=== PATIENT | male | born 1985 | race Caucasian/White ===

== ENCOUNTER → 2020-03-22 09:24 | Outpatient (BNVA) | payer BC, SELFPAY | PROVIDERS: Visit Provider Surgery | DX: Z76.89 Persons encountering health services in other specified circumstances (principal) ==

== ENCOUNTER → 2020-04-04 08:24 | Outpatient (BNVA) | payer BC, SELFPAY | PROVIDERS: PCP Internal Medicine; Visit Provider Physician Assistant | DX: Z76.89 Persons encountering health services in other specified circumstances (principal) ==

== ENCOUNTER → 2020-04-05 08:23 | Outpatient (BNVA) | payer BC, SELFPAY | PROVIDERS: PCP Internal Medicine; Visit Provider Physician Assistant | DX: Z76.89 Persons encountering health services in other specified circumstances (principal) ==

== ENCOUNTER → 2020-04-18 09:57 | Outpatient (BNVA) | payer BC, SELFPAY | PROVIDERS: PCP Internal Medicine; Visit Provider Surgery ==

== ENCOUNTER → 2020-05-02 08:14 | Outpatient (BNVA) | payer BC, SELFPAY | PROVIDERS: PCP Internal Medicine; Visit Provider Physician Assistant ==

== ENCOUNTER 2020-05-16 09:25 | Outpatient (REF) | payer BC, SELFPAY ==
[2020-05-16 12:39] LABS: Vitamin D 25-OH Total 19.5 ng/mL (>30)
== END 2020-05-16 09:26 | disposition home or self-care (01) ==
LOC: HO.LAB 09:25
PROVIDERS: PCP Internal Medicine; Visit Provider Surgery
DX: Z01.818 Encounter for other preprocedural examination (principal); E55.9 Vitamin D deficiency, unspecified; E66.01 Morbid (severe) obesity due to excess calories; G47.33 Obstructive sleep apnea (adult) (pediatric); Z99.89 Dependence on other enabling machines and devices; Z68.42 Body mass index [BMI] 45.0-49.9, adult
CPT/HCPCS: 36415; 82306

== ENCOUNTER → 2020-05-30 13:56 | Outpatient (BNVA) | payer BC, SELFPAY | PROVIDERS: PCP Internal Medicine; Visit Provider Surgery ==

== ENCOUNTER → 2020-06-13 14:23 | Outpatient (BNVA) | payer BC, SELFPAY | PROVIDERS: PCP Internal Medicine; Visit Provider Surgery ==

== ENCOUNTER 2020-06-23 07:15 | Outpatient (REF) | payer BC, SELFPAY ==
[2020-06-23 11:34] LABS: Glucose Urine UA NEG (NEG); Leukocyte Esterase Urine NEG (NEG); Nitrite Urine NEG (NEG); Specific Gravity - Urine >= 1.030 (1.005-1.025); Urine Blood TRACE (NEG); Urine Ketones NEG (NEG); Urine Protein NEG (NEG-TRACE)
[2020-06-23 11:36] LABS: Appearance Urine TURBID; Color Urine YELLOW
[2020-06-23 11:37] LABS: Hematocrit 40.8 % (42-52); Hemoglobin 13.4 g/dl (14.0-18.0); Mean Corpuscular HGB Conc 32.8 g/dl (31.0-36.0); Mean Corpuscular Hemoglobin 27.2 pg (27.0-33.0); Mean Corpuscular Volume 82.9 fL (80-98); Mean Platelet Volume 10.7 fL (9.4-12.4); Platelet Count 208 X10*3/uL (160-400); Red Blood Count 4.92 X10*6/uL (4.60-5.80); White Blood Count 5.1 X10*3/uL (4.8-10.8)
[2020-06-23 11:59] LABS: RBC Urine 0-2 /HPF (0); WBC Urine 0 /HPF (0-4)
[2020-06-23 12:00] LABS: Amorphous Sediment Urine 4+ /LPF
[2020-06-23 12:05] LABS: Alanine Aminotransferase 27 U/L (0-40); Albumin Level 4.2 g/dL (3.5-5.0); Alkaline Phosphatase 44 U/L (39-117); Anion Gap 12 (12-20); Aspartate Amino Transferase 20 U/L (5-37); Bilirubin Total 0.5 mg/dL (0.0-1.0); Blood Urea Nitrogen 18 mg/dL (9-16); Calcium 8.7 mg/dL (8.4-10.2); Carbon Dioxide 25 mmol/L (22-29); Chloride 105 mmol/L (96-108); Cholesterol 168 mg/dL; Estimated Glomerular Filt Rate > 60; Glucose Fasting 91 mg/dL (60-99); HDL Cholesterol 33 mg/dL; LDL Cholesterol Calculated 116 mg/dl; Potassium 4.3 mmol/L (3.3-5.1); Sodium 138 mmol/L (135-145); Total Protein 7.2 g/dL (6.5-8.0); Triglycerides 97 mg/dL
[2020-06-23 12:13] LABS: TSH reflex Free T4 1.13 uIU/mL (0.32-4.0); Vitamin D 25-OH Total 28.6 ng/mL (>30)
== END 2020-06-23 07:16 | disposition home or self-care (01) ==
LOC: HO.HMGCLDS 07:15
PROVIDERS: Surgery; PCP Internal Medicine; Visit Provider Internal Medicine
DX: Z00.00 Encounter for general adult medical examination without abnormal findings (principal); E55.9 Vitamin D deficiency, unspecified
CPT/HCPCS: 36415; 80053; 80061; 81001; 82306; 84443; 85027

== ENCOUNTER → 2020-07-04 15:29 | Outpatient (BNVA) | payer BC, SELFPAY | PROVIDERS: PCP Internal Medicine; Visit Provider Surgery ==

== ENCOUNTER → 2020-07-18 13:54 | Outpatient (BNVA) | payer BC, SELFPAY | PROVIDERS: PCP Internal Medicine; Visit Provider Surgery ==

== ENCOUNTER → 2020-08-08 10:08 | Outpatient (BNVA) | payer BC, SELFPAY | PROVIDERS: PCP Internal Medicine; Visit Provider Surgery ==

== ENCOUNTER → 2020-08-29 09:31 | Outpatient (BNVA) | payer BC, SELFPAY | PROVIDERS: PCP Internal Medicine; Visit Provider Surgery | DX: E66.9 Obesity, unspecified (principal) ==

== ENCOUNTER → 2020-09-20 14:51 | Outpatient (BNVA) | payer BC, SELFPAY | PROVIDERS: PCP Internal Medicine; Referring Provider Internal Medicine; Visit Provider Surgery ==

== ENCOUNTER → 2020-10-03 09:25 | Outpatient (BNVA) | payer BC, SELFPAY | PROVIDERS: PCP Internal Medicine; Referring Provider Internal Medicine; Visit Provider Physician Assistant ==

== ENCOUNTER → 2020-10-07 08:40 | Outpatient (BNVA) | payer BC, SELFPAY | PROVIDERS: PCP Internal Medicine; Visit Provider Physician Assistant ==

== ENCOUNTER → 2020-10-25 15:53 | Outpatient (BNVA) | payer BC, SELFPAY | PROVIDERS: PCP Internal Medicine; Referring Provider Internal Medicine; Visit Provider Surgery | DX: Z01.818 Encounter for other preprocedural examination (principal); R06.02 Shortness of breath ==

== ENCOUNTER 2020-11-02 10:36 | Inpatient (IN) | payer BC, SELFPAY ==
[2020-10-25 17:35] LABS: MANUAL DIFF FLAG NO
[2020-10-25 17:37] LABS: Basophils Percent Auto 0.3 % (0-2); Eosinophils Absolute Auto 0.2 X10*3/uL (0.0-0.4); Hematocrit 40.3 % (42-52); Hemoglobin 13.6 g/dl (14.0-18.0); Imm Gran Abs Auto 0.01 X10*3/uL (0.00-0.03); Imm Gran Pct Auto 0.1 % (0.0-0.4); Lymphocytes Absolute Auto 2.7 X10*3/uL (1.2-4.9); Lymphocytes Percent Auto 33.8 % (20-40); Mean Corpuscular HGB Conc 33.7 g/dl (31.0-36.0); Mean Corpuscular Hemoglobin 27.5 pg (27.0-33.0); Mean Corpuscular Volume 81.6 fL (80-98); Mean Platelet Volume 10.9 fL (9.4-12.4); Monocytes Absolute Auto 0.4 X10*3/uL (0.1-1.2); Monocytes Percent Auto 5.6 % (2-11); Neutrophils Absolute Auto 4.6 X10*3/uL (2.0-8.3); Neutrophils Percent Auto 58.2 % (45-73); Platelet Count 245 X10*3/uL (160-400); Red Blood Count 4.94 X10*6/uL (4.60-5.80); White Blood Count 7.8 X10*3/uL (4.8-10.8)
[2020-10-25 17:42] LABS: Glucose Urine UA NEG (NEG); Leukocyte Esterase Urine NEG (NEG); Nitrite Urine NEG (NEG); Specific Gravity - Urine >= 1.030 (1.005-1.025); UACC Culture Trigger NO; Urine Blood TRACE (NEG); Urine Ketones NEG (NEG); Urine Protein NEG (NEG-TRACE)
[2020-10-25 17:43] LABS: Appearance Urine HAZY; Color Urine YELLOW
[2020-10-25 17:45] LABS: INTERNATIONAL NORM RATIO 1.1 (0.9-1.1)
[2020-10-25 17:48] LABS: Partial Thromboplastin Time 28.8 SEC (24.1-38.0)
[2020-10-25 17:55] LABS: Albumin Level 4.4 g/dL (3.5-5.0); Anion Gap 13 (12-20); Blood Urea Nitrogen 17 mg/dL (9-16); Calcium 9.3 mg/dL (8.4-10.2); Carbon Dioxide 25 mmol/L (22-29); Chloride 105 mmol/L (96-108); Estimated Glomerular Filt Rate > 60; Glucose Random 86 mg/dL (60-115); Potassium 4.2 mmol/L (3.3-5.1); Sodium 139 mmol/L (135-145)
[2020-10-25 18:25] LABS: Bacteria Urine TRACE /LPF; RBC Urine 0-2 /HPF (0); WBC Urine 0 /HPF (0-4)
--- NOTE | 2020-10-26 07:10 | ECG_ITS ---
Test Reason : PREOP? Blood Pressure : / mmHG Vent. Rate : 070 BPM Atrial Rate : 070 BPM P-R Int : 176 ms QRS Dur : 090 ms QT Int : 392 ms P-R-T Axes : 081 041 050 degrees QTc Int : 423 ms Normal sinus rhythm Otherwise normal ECG Referred By: Kelsea Estrada Electronically Signed By:Bartolome Weinberg
[2020-10-27 10:13] VITALS: BMI 42.3
--- NOTE | 2020-10-31 13:28 | HO.ANESPROP2 ---
Documented by User: Theresa Zaldivar 10/31/20 13:28 HPI - Anesthesia Eval Consult details Narrative: 35yo M for Gastrectomy Sleeve,EGD,possible diaphragmatic hernia,possible ventral hernia,poss open PMFSH Active Problems Active Problems: All Active Problems (Updated 10/27/20 @ 10:13 by Belinda House) Body mass index (BMI) of 45.0-49.9 in adult (Acute) Vitamin D deficiency (Acute) Body mass index (BMI) of 40.1 to 44.9 in adult (Acute) Seasonal allergies (Acute) Adjustment disorder, unspecified (Acute) Preoperative examination (Acute) Shortness of breath (Acute) Morbid obesity due to excess calories (Acute) Annual physical exam (Acute) Past Medical History Medical History Annual physical exam Asthma Low testosterone in male Mixed hyperlipidemia Morbid obesity due to excess calories Obstructive sleep apnea on CPAP Family History Family History Father Heart disease Psoriasis Diabetes CVD (cardiovascular disease) Mother Diabetes Son No problems noted. Brother No problems noted. Brother No problems noted. Brother No problems noted. Brother No problems noted. Sister No problems noted. Sister No problems noted. Sister No problems noted. Sister No problems noted. Surgical History Surgical History No pertinent past surgical history Social History Social History Household Members: Family Housing: House Housing Other:: works as [employer] Are you a primary housekeeper child care to a significant other at home: No Do you presently have visiting nurse or other home services: No Patient Tobacco Use Status: Never used Tobacco Meds Allergies Allergy/AdvReac Type Severity Reaction Status Date / Time dog dander Allergy Mild Runny Verified 10/27/20 10:10 Nose, congestion Home Medications Medication Instructions Recorded Confirmed Last Taken Type multivitamin 1 tab PO DAILY 10/27/20 10/27/20 Unknown History Exam Exam Date and Time: October 31, 2020 1328 Height,Weight and Vital Signs: Height 6 ft 5 in Weight 161.932 kg Pertinent Lab Results Pertinent Lab Results: Laboratory Tests 0810/25/20 10/25/20 16:40 16:40 16:40 WBC 7.8 RBC 4.94 Hgb 13.6 L Hct 40.3 L MCV 81.6 MCH 27.5 MCHC 33.7 RDW 13.0 Plt Count 245 MPV 10.9 Immature Gran % (Auto) 0.1 Neut % (Auto) 58.2 Lymph % (Auto) 33.8 [place] % (Auto) 5.6 Eos % (Auto) 2.0 Baso % (Auto) 0.3 Lymph # (Auto) 2.7 [place] # (Auto) 0.4 Eos # (Auto) 0.2 Baso # (Auto) 0.0 Abs Immat Gran (auto) 0.01 Absolute Neuts (auto) 4.6 Absolute Nucleated RBC 0.000 Nucleated RBC % (auto) 0.0 PT 13.0 INR 1.1 APTT 28.8 Sodium Potassium Chloride Carbon Dioxide Anion Gap BUN Creatinine Estim Creat Clear Calc Estimated GFR Random Glucose Calcium Albumin Urine Color YELLOW Urine Appearance HAZY Urine pH 6.0 Ur Specific [place] >= 1.030 H Urine Protein NEG Urine Glucose (UA) NEG Urine Ketones NEG Urine Blood TRACE Urine Nitrite NEG Ur Leukocyte Esterase NEG Urine RBC 0-2 Urine WBC 0 Ur Squamous Epith Cells NONE Urine Bacteria TRACE Blood Type Antibody Screen 10/25/20 10/25/20 16:40 16:40 WBC RBC Hgb Hct MCV MCH MCHC RDW Plt Count MPV Immature Gran % (Auto) Neut % (Auto) Lymph % (Auto) [place] % (Auto) Eos % (Auto) Baso % (Auto) Lymph # (Auto) [place] # (Auto) Eos # (Auto) Baso # (Auto) Abs Immat Gran (auto) Absolute Neuts (auto) Absolute Nucleated RBC Nucleated RBC % (auto) PT INR APTT Sodium 139 Potassium 4.2 Chloride 105 Carbon Dioxide 25 Anion Gap 13 BUN 17 H Creatinine 0.82 Estim Creat Clear Calc TNP Estimated GFR > 60 Random Glucose 86 Calcium 9.3 D Albumin 4.4 Urine Color Urine Appearance Urine pH Ur Specific [place] Urine Protein Urine Glucose (UA) Urine Ketones Urine Blood Urine Nitrite Ur Leukocyte Esterase Urine RBC Urine WBC Ur Squamous Epith Cells Urine Bacteria Blood Type A Positive Antibody Screen NEGATIVE Narrative Narrative: EKG 10/2020 Vent. Rate : 070 BPM ? ? Atrial Rate : 070 BPM ?? P-R Int : 176 ms? QRS Dur : 090 ms ? ? QT Int : 392 ms ? ? ? P-R-T Axes : 081 041 050 degrees ?? QTc Int : 423 ms ? Normal sinus rhythm Otherwise normal ECG Assessment and Plan Assessment Anesthesia Assessment: Chart Reviewed Documented by User: Kenzie Begum MD 11/02/20 08:18 PMFSH Past Medical History Medical History Annual physical exam Asthma Low testosterone in male Mixed hyperlipidemia Morbid obesity due to excess calories Obstructive sleep apnea on CPAP Family History Family History Father Heart disease Psoriasis Diabetes CVD (cardiovascular disease) Mother Diabetes Son No problems noted. Brother No problems noted. Brother No problems noted. Brother No problems noted. Brother No problems noted. Sister No problems noted. Sister No problems noted. Sister No problems noted. Sister No problems noted. Family history of problems with anesthesia: No Surgical History Surgical History No pertinent past surgical history History of Problems with Anesthesia: No Social History Social History Household Members: Family Housing: House Housing Other:: works as [employer] Are you a primary housekeeper child care to a significant other at home: No Do you presently have visiting nurse or other home services: No Patient Tobacco Use Status: Never used Tobacco Meds Allergies Allergy/AdvReac Type Severity Reaction Status Date / Time dog dander Allergy Mild Runny Verified 10/27/20 10:10 Nose, congestion Home Medications Medication Instructions Recorded Confirmed Last Taken Type multivitamin 1 tab PO DAILY 10/27/20 10/27/20 Unknown History Exam Airway Mallampati Class: II TM Dist: >3cm Neck ROM: Full Assessment and Plan Assessment Anesthesia Assessment: Anesthesia Plan Discussed Final Anesthetic Review Family History of Problems with Anesthesia: No History of Problems with Anesthesia: No NPO: Yes ASA Class: III Final Preanesthetic Review: No Changes in Pt Med Stat, Meds/Allgs Chart Reviewed, Consent Obtained/Reviewed and Anes Risks/Benef Reviewed Patient Risk: Intermediate Procedure Risk: Intermediate Assessment/Block/Sedation in SS: Assess/Block/Sedation-SS Anesthetic Plan Anesthetic Plan: GA Disposition: Standard PACU
--- NOTE | 2020-11-01 16:02 | MHC.SHP ---
Pre-Procedural Eval Section A Date of Service: 11/01/20 Section B Chief Complaint: obesity Allergies: Allergies Allergy/AdvReac Type Severity Reaction Status Date / Time dog dander Allergy Mild Runny Verified 10/27/20 10:10 Nose, congestion Plan I have reviewed the history and physical and performed a pertinent physical examination on my patient. No changes have occurred unless specified.
[2020-11-02] VITALS (15 sets, daily range): BP systolic 120–170; BP diastolic 65–102; PULSE 58–80; RESP 16–20; TEMP 35.9–36.7; O2SAT 94–99
--- NOTE | ~2020-11-02 | XR_ITS ---
EXAMINATION: XR CHEST CLINICAL INFORMATION: R06.02 - Shortness of breath COMPARISON: Chest radiographs 11/23/2019, 11/04/2017 TECHNIQUE: 2 views of the chest were obtained. FINDINGS: The lungs are clear. The vascularity is normal. There is no airspace consolidation or groundglass opacity or effusion. The heart is normal in size. The hilar and mediastinal contours and visualized bony structures are unremarkable. XR/XR chest 2V IMPRESSION: Unremarkable examination.
[2020-11-02] MEDS: Lactated Ringers 1,000 ML 100 ML IVCONT (06:50)
[2020-11-02 07:07] LABS: COVID-19 Test Negative (Negative); IDNOW Serial# 9DD0AD1C
--- NOTE | 2020-11-02 10:19 | PM.OP ---
Brief Operative Note Date of Service: 11/02/20 Pre-op diagnosis: Morbid obesity, BMI 42.3, sleep apnea Post-op diagnosis: other (Same and hiatal hernia) Procedure: Laparoscopic sleeve gastrectomy, hiatal hernia repair, Ayaan block, and intraoperative endoscopy Implants: Medium size clips on the staple line distally Surgeon: Kelsea Estrada MD Anesthesia: GETA Was an Child Support Case Officer used for this Procedure?: Yes Child Support Case Officer: Mary Charlton Estimated blood loss (mL): 5 Pathology: other (Partial gastrectomy) Condition: stable Disposition: PACU
--- NOTE | 2020-11-02 10:20 | P.OP_ITS ---
Operative Note Operative Note Date of Service: 11/02/20 Narrative: Patient was brought into the operating room and placed on the operating room table in the supine position. General anesthesia was induced. Normal DVT prophylaxis was instituted and the patient received 2 grams of cefotetan preoperatively. The abdomen was then prepped and draped in the normal sterile fashion. A safety time-out was performed. A mixture of 1% lidocaine with epinephrine and ?% Marcaine plain was used to an esthetize the planned incision site in the left upper quadrant. A #11 scalpel was used to make a 5 mm left upper quadrant transverse incision through which a veress needle was placed. Three pops were heard going through the fascia. A saline drop test was used to confirm that the veress needle was intraabdominal. An optiview technique was then used to place a 5mm port in the left upper quadrant. A 5 mm 30 degree laproscope was then placed through this port and the abdominal cavity was surveyed and was normal. The patient was placed in reverse Trendelenburg positioning. A jonathan liver retractor was then placed in the subxyphoid position and it was used to hold up the left lobe of the liver to the abdominal wall. This was secured to the bed using the liver retractor chavez. A KIRSTEN block was then performed for pain control on the right side of the abdomen. A 5 mm port was placed in the right upper quadrant near the falciform ligament. A 12 mm port was then placed in the mid epigastrium. One additional 5 mm port was placed in the left upper quadrant just to the left of the placement of the first port. I then performed a KIRSTEN block on the left side of the abdomen. I then removed the epigastric fat pad; there was a small anterior hiatal hernia noted. I reapproximated the left and right crura with a total of 2 stitches of 2-0 ethibond and a laparoscopic knot pusher. There was no residual hiatal hernia. I then opened up the angle of His. We then gained entry into the lesser sac about 4-5 cm from the pylorus. I had anesthesia place a 34 German orogastric tube into the distal antrum to use as a sizing tool for gastric pouch size. I divided the short gastric vessels up to the angle of His. We then started the creation of the gastric pouch by firing a 60 mm purple load endostapler up the stomach about 4-5 cm from the pylorus. We completed the creation of the gastric pouch using a total of 4 firings of a 60 mm and 1 firing of a 45 mm purple load stapler. We had anesthesia remove the orogastric tube, then we clamped across the distal antrum using a fired 60 mm endostapler. We flattened the patient and then instilled normal saline surrounding the newly created staple line. I then performed an on-table endoscopy. I passed the gastroscopy into the posterior oropharynx and down the esophagus evaluating the esophageal mucosa which was normal. There was no evidence of hiatal hernia. I passed the gastroscope into the gastric pouch and insufflated the gastric pouch. There was healthy pink mucosa and no evidence of active bleeding. There was no evidence of leak on laparosco py. I desufflated the gastric pouch and removed the endoscope. I removed the endostapler from the abdomen and suctioned the fluid from the left upper quadrant. I then removed the partial gastrectomy specimen through the epigastric 12 mm port site. I reapproximated the 12 mm port using a 0 maxon suture with a laparoscopic suture passer. I instilled local anesthetic into the fascial closure site and tied the suture down at a pressure of 8-10 mm of Hg. There was no residual fascial defect. We removed the liver retractor and the left upper quadrant 5 mm ports under direct visualization. There was no evidence of any active bleeding. I desufflated the abdomen through the last remaining port and removed the laparoscope and 5 mm port. We reapproximated all incisions with a 4-0 monocryl subcuticular stitch. We cleaned and dried the abdominal skin and applied dermabond skin glue. All count were correct at the end of the case. The patient was awake and in stable condition prior to extubation and transfer to the recovery room.
[2020-11-02] MEDS: HYDROmorphone HCl 0.5 MG/0.5 ML SYRINGE IVPUSH ×2 (10:50→11:20)
[2020-11-02] MEDS: ondansetron HCL 4 MG/2 ML VIAL IVPUSH ×2 (10:52→17:51)
[2020-11-02] MEDS: Famotidine/PF 20 MG/2 ML VIAL IVPUSH ×2 (10:56→20:28)
[2020-11-02] MEDS: Lactated Ringers 1,000 ML 125 ML IVCONT ×2 (11:35→19:06)
[2020-11-02] MEDS: Metoclopramide HCl 10 MG/2 ML VIAL IVPUSH (14:52)
[2020-11-02] MEDS: HYDROmorphone HCl 0.5 MG/0.5 ML SYRINGE 0.25 MG IVPUSH ×2 (15:17→19:27)
[2020-11-02] MEDS: cefoTEtan disodium 2 GM in 0.9 % Sodium Chloride 50 ML IV (20:28)
[2020-11-02] MEDS: 0.9 % Sodium Chloride Flush 3 ML SYRINGE IVFLUSH (20:28)
--- NOTE | 2020-11-02 20:34 | P.DS_ITS ---
DS: Providers Provider Date of Service: 11/03/20 Date of admission: 11/02/20 10:36 Primary care physician: Gela Preston MD DS: Medications Discharge Medications Home Medications: Home Medications Medication Instructions Recorded Confirmed multivitamin 1 tab PO DAILY 10/27/20 10/27/20 Previous Rx's Medication Instructions Recorded phentermine 37.5 mg capsule 37.5 mg PO DAILY #30 cap 09/20/20 montelukast 10 mg tablet 10 mg PO DAILY #90 tab 09/23/20 acetaminophen 500 mg tablet 1,000 mg PO Q6H PRN #30 tab 10/25/20 (Tylenol Extra Strength) docusate sodium 100 mg capsule 100 mg PO BID #30 cap 10/25/20 (Colace) famotidine 20 mg tablet (Pepcid AC) 20 mg PO DAILY #30 tab 10/25/20 ondansetron HCl 4 mg tablet 4 mg PO Q6H PRN #30 tab 10/25/20 (Zofran) simethicone 80 mg chewable tablet 80 mg PO TID-QID PRN #30 tab 10/25/20 (Gas Relief (simethicone)) DS: Summary Time Spent with Patient Time attestation: Total time spent providing and/or coordinating discharge services: Discharge coordination time: Greater than 30 minutes Quality: Stroke Does the patient have a stroke diagnosis?: No Physical Exam Vital Signs: Vital Signs: Last Vital Signs Temp 98.1 F 11/02/20 18:56 Pulse 60 11/02/20 18:56 Resp 18 11/02/20 18:56 BP 135/65 11/02/20 18:56 Pulse Ox 97 11/02/20 18:56 Body Mass Index 42.3 DS: Data Data Completed and Pending Pending studies at discharge: Pending at discharge 11/02/20 09:55 Surgical [PTH] Routine Labs on day of discharge: Laboratory Results - last 24 hr 11/02/20 06:19 COVID-19 ([facility]) Negative COVID-19 Clin Com See Note Discharge Plan Discharge Patient Disposition: Home, Self-Care Discharge Diagnosis: obesity s/p LSG and HH repair Referrals: Gela Preston MD [Primary Care Provider] - 1 Week Discharge Medications: Continued montelukast 10 mg tablet 10 mg PO DAILY Qty: 90 RF: 3 multivitamin Tablet 1 tab PO DAILY RF: 0 acetaminophen [Tylenol Extra Strength] 500 mg tablet 1,000 mg PO Q6H PRN (Reason: pain) Qty: 30 RF: 1 famotidine [Pepcid AC] 20 mg tablet 20 mg PO DAILY Qty: 30 RF: 1 simethicone [Gas Relief (simethicone)] 80 mg tablet,chewable 80 mg PO TID-QID PRN (Reason: abdominal distention) Qty: 30 RF: 1 ondansetron HCl [Zofran] 4 mg tablet 4 mg PO Q6H PRN (Reason: nausea and vomiting) Qty: 30 RF: 1 docusate sodium [Colace] 100 mg capsule 100 mg PO BID Qty: 30 RF: 1 Discontinued phentermine 37.5 mg capsule 37.5 mg PO DAILY Qty: 30 RF: 0 Discharge Orders: Discharge Order (Routine); Ordered 11/03/20 Ordered By: Kelsea Estrada Diet: other Activity on Discharge: No heavy lifting Stand Alone Forms: Patient Portal Discharge page Activity Restrictions/Additional Instructions: Discharge Instructions 1. Please call your doctor or come back to the emergency room should any new symptoms arise. 2. You will receive a courtesy call from [facility] 24-48 hours after discharge. 3. Activity: abstain from alcohol, practice limited stair climbing, no bending, no driving, no exercise, no illicit substances, no lifting, no sex, no tub bath, no work. 4. Diet: continue stage 3 protein shakes until your [address] Estrada. 5. Dressing Change/Wound Care: Your incision is covered by surgical glue. If the area is tender, you may apply an ice pack for short intervals (no more than 20 minutes on, followed by at least 20 minutes off). Do not apply heat. Do not use creams, lotions, or topical antibiotics unless instructed to do so by your surgeon. These can cause infection or allergic reaction. 6. Call your doctor if: - Your temperature exceeds 101.5 F - You experience excessive pain or swelling - You have an unexpected reaction to medication - You have excessive bleeding - You experience continued vomiting/nausea - Your incision begins to separate - Your incision shows signs of infection such as increased redness, swelling, excessive pain, heat, or drainage (light blood or clear fluid is normal) 7. General instructions: - No lifting greater than 5 lbs for the next 4 weeks. - No driving within 24 hours of taking narcotic pain medications. - If you do not move your bowels in the next 2 days, please take milk of magnesia over the counter. Please follow the post op diet and do not advance your diet until you are seen in the office in about 2 weeks. - Please walk around your home every hour or two to prevent blood clots from forming in your legs. You do not need to wake from sleeping to walk. - Please sleep in a bed or couch to prevent kinking at the hips and knees. - Please take your incentive spirometer (your lung housekeeper cleaning cooking) home with you and use it for the next few days to prevent pneumonias. - You may shower, no hot tubs, baths or swimming pools. - Please call the office with any questions or concerns such as increasing abdominal pain, fever, chills, shortness of breath, chest pain, leg pain or swelling, or redness or drainage from your incisions. - Please stay on stage 3 diet which includes sugar free clear liquids such as ice pops and jello and broth and crystal light. Avoid all carbonation. Please drink 3 protein shakes with at least 25-30 grams of protein daily or 3 of the Celebrate 4:1 shakes which can be purchased in our office. The Celebrate shakes have all of the bariatric vitamins you need if you consume these shakes. If you are drinking other protein shakes, you will need to purchase the Celebrate multivitamins and calcium that we provide in the office (they will provide all the vitamins you need). Please make sure you are consuming at least 40-60 ounces of water in addition to your 3 protein shakes daily. 8. Do not hesitate to contact the office with any questions at . The patient's medical history has been reviewed and they are considered low risk for post op DVT and therefore DVT prophylaxis is not considered necessary. Travel after surgery was reviewed. The patient has not disclosed any travel plans during the first 30 days after surgery and they have been advised that within the first 30 days after surgery any bus, plane, train or car travel over 2 hours in duration is contraindicated due to the possibility of developing blood clots from immobility. Any travel, needs to include periods of ambulation of 10 minutes in duration every 2 hours. The patient was instructed to discuss any plans for travel during this period with their bariatric surgeon. Discharge Summary Date of Service: 11/03/20 Pre-op diagnosis: Morbid obesity, BMI 42.3, sleep apnea Post-op diagnosis: other (Same and hiatal hernia) Procedure: Laparoscopic sleeve gastrectomy, hiatal hernia repair, Ayaan block, and intraoperative endoscopy Discharge Medications: 1. Simethicone 80mg tablet chewable (Si tablet every 6 hours orally for 7 days, #28, 1 RF) q4h prn gas 2. Acetaminophen 500 mg tablet (Si tablets as needed every 6 hours orally for 30 days, #240, 0 RF) 3. Ondansetron 4 mg tablet disintegrating (Si tablet every 6 hours orally for 7 days, #28, 1 RF) 4. Colace 100 mg capsule (Si capsule twice a day for 30 days, #60, 2 RF) 5. Pepcid 20 mg chewable tablet (Si tablet twice a day for 30 days, #60, 3 RF) Discharge Instructions: The patient should continue on the stage III bariatric diet, which includes 3 protein shakes of at least 20-30g of protein on a daily basis. The patient was encouraged to avoid drinking liquids with her protein shakes. They should wait 30-45 minutes in between her meals and drinking water. She should drink at least 40-60 ounces of water on a daily basis. They should ambulate while at home to avoid any blood clots in her lower extremities. They should call with any questions or concerns such as increase in abdominal pain, persistent nausea, vomiting, redness and drainage from her incisions, fever, chills, shortness of breast, or chest pain beyond what is normal for her. The patient should avoid all heavy lifting greater than 5 pounds for the next 4 weeks. The patient is already scheduled to follow up with me in 2 weeks time, but should call the office with any questions prior to that follow up appointment. The patient should not advance their diet until they are seen in the office for the 2 week appointment. Hospital Course: The patient was admitted after undergoing a LSG and HH repair. They were started on stage II (1 oz of fluid every 15 minutes) on POD #0. The next morning they were evaluated and started on stage III diet (protein shakes). All labs were within normal limits. On post-operative day #1 she was feeling better, nausea and epigastric pain improved and they were tolerating stage III bariatric diet well. The patient was discharged home. Discharge Disposition: Home. Care Plan Goals: weight loss Health Concerns: obesity Plan of Treatment: weight loss Assessment: POD #1 Discharge Date/Time: 11/03/20 09:39
--- NOTE | 2020-11-02 20:34 | P.PNGS_ITS ---
Subjective Subjective Date of Service: 11/03/20 <Mary Charlton PA-C - Last Filed: 11/03/20 22:09> 11/03/20 <Kelsea Estrada MD - Last Filed: 11/03/20 12:26> Interval history: Pod #1 s/p LSG and HH repair. Doing well. Tolerating stage 3 diet, ambulating in hallway. Pain well controlled. Denies nausea or vomiting. Vitals and labs reviewed and are within limit for post op day 1. On exam, patient is well appearing, abdomen is soft, nd, mild appropriate incisional tenderness. Incisions c/d/i with dermabond in place. Plan: d/c home today. Follow up with me in 2 weeks. <Mary Charlton PA-C - Last Filed: 11/03/20 22:09> Pod #1 s/p LSG and HH repair. Doing well. Tolerating stage 3 diet, ambulating in hallway. Pain well controlled. Denies nausea or vomiting. Vitals and labs reviewed and are within limit for post op day 1. On exam, patient is well appearing, abdomen is soft, nd, mild appropriate incisional tenderness. Incisions c/d/i with dermabond in place. Plan: d/c home today. Follow up with me in 2 weeks. 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 I will follow up with the patient again in 2 weeks time frame. Patient will be discharged home today. <Kelsea Estrada MD - Last Filed: 11/03/20 12:26> Physical Exam Vital Signs: Vital Signs: Last Vital Signs Temp 98.1 F 11/02/20 18:56 Pulse 60 11/02/20 18:56 Resp 18 11/02/20 18:56 BP 135/65 11/02/20 18:56 Pulse Ox 97 11/02/20 18:56 Body Mass Index 42.3 <Mary Charlton PA-C - Last Filed: 11/03/20 22:09> Const: General: cooperative, comfortable, no acute distress, alert and awake <Mary Charlton PA-C - Last Filed: 11/03/20 22:09> Nutritional Appearance: obese <Mary Charlton PA-C - Last Filed: 11/03/20 22:09> GI: Inspection: Yes normal to inspection, No distended and Yes incision (clean, dry, intact, dermabond in place) <Mary Charlton PA-C - Last Filed: 11/03/20 22:09> Palpation (GI): Soft to palpation and Tenderness to palpation present (GI) (mild appropriate incisional tenderness) <Mary Charlton PA-C - Last Filed: 11/03/20 22:09> Extrem: Right lower extremity: lower leg Details: Negative for no tenderness; No no edema <Mary Charlton PA-C - Last Filed: 11/03/20 22:09> Left lower extremity: lower leg Details: Negative for no tenderness; No no edema <Mary Charlton PA-C - Last Filed: 11/03/20 22:09> Procedures Date of Service Date of Service: 11/03/20 <Kelsea Estrada MD - Last Filed: 11/03/20 12:26> Progress Note: A&P Assessment and plan (1) Morbid obesity: Status: Acute <Mary Charlton PA-C - Last Filed: 11/03/20 22:09> (2) Hiatal hernia: Status: Acute <Mary Charlton PA-C - Last Filed: 11/03/20 22:09> (3) History of repair of hiatal hernia: Status: Acute <LEIF Gray Last Filed: 11/03/20 22:09> (4) S/P laparoscopic sleeve gastrectomy: Status: Acute <Mary Charlton PA-C - Last Filed: 11/03/20 22:09> Fall Risk Details Current Medications: Current Medications Generic Name Dose Route Start Last Admin Trade Name Freq PRN Reason Stop Dose Admin Famotidine 20 mg 11/02/20 21:00 11/02/20 20:28 Famotidine/Pf 20 Mg/2 Ml Vial IVPUSH 20 mg BID YOLANDA Administration Hydromorphone HCl 0.25 mg 11/02/20 14:39 11/02/20 19:27 Hydromorphone Hcl 0.5 Mg/0.5 Ml Syringe IVPUSH 0.25 mg Q4H PRN Administration pain Protocol Lactated Ringer's 1,000 mls @ 125 mls/hr 11/02/20 10:45 11/02/20 19:06 Lr IVCONT 125 mls/hr .Q8H YOLANDA Administration Cefotetan Disodium 2 gm/ 50 mls @ 100 mls/hr 11/02/20 20:30 11/02/20 20:28 Sodium Chloride IV 11/02/20 20:59 100 mls/hr ONCE@2030 YOLANDA Administration Acetaminophen 1,000 mg in 100 mls @ 16.7 mls/hr 11/02/20 10:45 11/02/20 19:27 Ofirmev IV 16.7 mls/hr .Q6H YOLANDA Administration Metoclopramide HCl 10 mg 11/02/20 10:36 11/02/20 14:52 Metoclopramide Hcl 10 Mg/2 Ml Vial IVPUSH 10 mg Q6H PRN Administration Nausea Ondansetron HCl 4 mg 11/02/20 10:45 11/02/20 17:51 Ondansetron Hcl 4 Mg/2 Ml Vial IVPUSH 4 mg Q8H YOLANDA Administration Sodium Chloride 3 ml 11/02/20 16:00 11/02/20 20:28 0.9 % Sodium Chloride Flush 3 Ml Syringe IVFLUSH 3 ml QSHIFT YOLANDA Administration <Mary Charlton PA-C - Last Filed: 11/03/20 22:09> Time Spent With Patient Time: Total time spent is greater than 50% in coordination of care (as documented) at patient's floor/unit and/or counseling patient: <Mary Charlton PA-C - Last Filed: 11/03/20 22:09> Time with patient: 25 - 35 minutes <Mary Charlton PA-C - Last Filed: 11/03/20 22:09> Quality Stroke Does the patient have a stroke diagnosis?: No <Kelsea Estrada MD - Last Filed: 11/03/20 12:26> VTE Prior VTE?: No <Kelsea Estrada MD - Last Filed: 11/03/20 12:26> VTE Risk Level:: Surgical - moderate <Kelsea Estrada MD - Last Filed: 11/03/20 12:26> VTE Device Contraindication: N/A - Device Ordered <Klesea Estrada MD - Last Filed: 11/03/20 12:26> VTE Drug Contraindication: Treatment Not Indicated <Kelsea Estrada MD - Last Filed: 11/03/20 12:26>
[2020-11-03] MEDS: Lactated Ringers 1,000 ML 125 ML IVCONT (02:18)
[2020-11-03] MEDS: HYDROmorphone HCl 0.5 MG/0.5 ML SYRINGE 0.25 MG IVPUSH (02:18)
[2020-11-03] MEDS: ondansetron HCL 4 MG/2 ML VIAL IVPUSH (02:18)
[2020-11-03 03:48] VITALS: BP 165/83; PULSE 66; RESP 16; TEMP 36.6; O2SAT 97
[2020-11-03 07:08] LABS: MANUAL DIFF FLAG NO
[2020-11-03] MEDS: Famotidine/PF 20 MG/2 ML VIAL IVPUSH (07:10)
[2020-11-03 07:13] LABS: Basophils Percent Auto 0.2 % (0-2); Eosinophils Percent Auto 0.2 % (0-4); Hematocrit 39.6 % (42-52); Hemoglobin 13.6 g/dl (14.0-18.0); Imm Gran Abs Auto 0.04 X10*3/uL (0.00-0.03); Imm Gran Pct Auto 0.3 % (0.0-0.4); Lymphocytes Percent Auto 15.8 % (20-40); Mean Corpuscular HGB Conc 34.3 g/dl (31.0-36.0); Mean Corpuscular Hemoglobin 27.3 pg (27.0-33.0); Mean Corpuscular Volume 79.5 fL (80-98); Monocytes Absolute Auto 0.9 X10*3/uL (0.1-1.2); Monocytes Percent Auto 7.4 % (2-11); Neutrophils Absolute Auto 9.5 X10*3/uL (2.0-8.3); Neutrophils Percent Auto 76.1 % (45-73); Platelet Count 258 X10*3/uL (160-400); Red Blood Count 4.98 X10*6/uL (4.60-5.80); White Blood Count 12.5 X10*3/uL (4.8-10.8)
[2020-11-03 07:14] VITALS: BP 136/75; PULSE 68; RESP 16; TEMP 36.4; O2SAT 96
[2020-11-03 07:39] LABS: Anion Gap 14 (12-20); Blood Urea Nitrogen 7 mg/dL (9-16); Calcium 8.9 mg/dL (8.4-10.2); Carbon Dioxide 23 mmol/L (22-29); Chloride 102 mmol/L (96-108); Estimated Glomerular Filt Rate > 60; Glucose Random 100 mg/dL (60-115); Sodium 135 mmol/L (135-145)
--- NOTE | 2020-11-03 09:18 | MHC.CM.PN ---
EMR REVIEWED, PT ADMITTED S/P LSG AND HH REPAIR, CM MET W/PT AND PT'S WHO WAS AT BEDSIDE, PT REPORTS HE LIVES W/ AND SON, PT IS INDEPENDENT W/ALL CARE, HAS A CPAP AND NO OTHER DME, NO HOME SERVICES, WORKS [employer], PT VERIFIES PCP AND PT PROVIDED INFO ON A HCP AND IS CURRENTLY DECLINING. D/C PLAN: HOME SELF-CARE TODAY, FOR TRANSPORT PCP:ALMA ROSA VALDEZ
== END 2020-11-03 09:39 | disposition home or self-care (01) | DRG 403 ==
LOC: HO.SSSA 10:46 → HO.S3 11:42
PROVIDERS: Physician Assistant; Admitting Provider Surgery; PCP Internal Medicine; Visit Provider Surgery
PROC: 0DB64Z3 Excision of Stomach, Percutaneous Endoscopic Approach, Vertical (ICD-10-PCS; CPT 43845; principal; 2020-11-02 08:10)
DX: E66.01 Morbid (severe) obesity due to excess calories (principal); E78.2 Mixed hyperlipidemia; K44.9 Diaphragmatic hernia without obstruction or gangrene; G47.33 Obstructive sleep apnea (adult) (pediatric); Z68.41 Body mass index [BMI] 40.0-44.9, adult; Z20.822 Contact with and (suspected) exposure to COVID-19; Z99.89 Dependence on other enabling machines and devices; Z79.899 Other long term (current) drug therapy
CPT/HCPCS: 36415; 71046; 80048; 81001; 82040; 85025; 85610; 85730; 86850; 86900; 86901; 87635; 88307; 88342; 93005; 99024; C1776; J0131; J0690; J1170; J2405; J2550; J2765

== ENCOUNTER → 2020-11-21 08:24 | Outpatient (BNVA) | payer BC, SELFPAY | PROVIDERS: PCP Internal Medicine; Referring Provider Internal Medicine; Visit Provider Dietitian, Registered | DX: E66.9 Obesity, unspecified (principal); K59.00 Constipation, unspecified; R42 Dizziness and giddiness; E78.2 Mixed hyperlipidemia; E55.9 Vitamin D deficiency, unspecified; G47.33 Obstructive sleep apnea (adult) (pediatric); J30.81 Allergic rhinitis due to animal (cat) (dog) hair and dander; Z68.39 Body mass index [BMI] 39.0-39.9, adult; Z99.89 Dependence on other enabling machines and devices; Z98.84 Bariatric surgery status; Z71.3 Dietary counseling and surveillance | CPT/HCPCS: 97803 ==

== ENCOUNTER 2020-12-12 08:59 | Outpatient (REF) | payer BC, SELFPAY ==
[2020-12-12 10:41] LABS: Hematocrit 40.7 % (42-52); Hemoglobin 13.6 g/dl (14.0-18.0); Mean Corpuscular HGB Conc 33.4 g/dl (31.0-36.0); Mean Corpuscular Hemoglobin 27.4 pg (27.0-33.0); Mean Corpuscular Volume 81.9 fL (80-98); Mean Platelet Volume 10.7 fL (9.4-12.4); Platelet Count 210 X10*3/uL (160-400); Red Blood Count 4.97 X10*6/uL (4.60-5.80); Red Cell Distribution Width 13.9 % (11.0-16.0); White Blood Count 5.8 X10*3/uL (4.8-10.8)
[2020-12-12 11:16] LABS: Alanine Aminotransferase 30 U/L (0-40); Albumin Level 4.2 g/dL (3.5-5.0); Alkaline Phosphatase 55 U/L (39-117); Anion Gap 12 (12-20); Aspartate Amino Transferase 24 U/L (5-37); Bilirubin Total 0.5 mg/dL (0.0-1.0); Blood Urea Nitrogen 12 mg/dL (9-16); Calcium 9.6 mg/dL (8.4-10.2); Carbon Dioxide 27 mmol/L (22-29); Chloride 107 mmol/L (96-108); Cholesterol 143 mg/dL; Estimated Glomerular Filt Rate > 60; Glucose Random 94 mg/dL (60-115); HDL Cholesterol 32 mg/dL; Iron 59 mcg/dL (45-160); LDL Cholesterol Calculated 98 mg/dl; Percent Iron Saturation 22 % (15-50); Potassium 4.7 mmol/L (3.3-5.1); Sodium 141 mmol/L (135-145); Total Iron Binding Capacity 266 mcg/dL (228-428); Total Protein 6.7 g/dL (6.5-8.0); Triglycerides 68 mg/dL; Unsaturated Iron Binding 207 ug/dL
[2020-12-12 11:21] LABS: TSH reflex Free T4 0.99 uIU/mL (0.32-4.0); Vitamin D 25-OH Total 36.9 ng/mL (>30)
[2020-12-12 12:10] LABS: Folate 15.8 ng/mL (> or = 4.0); Vitamin B12 590 pg/mL (200-900)
[2020-12-16 12:36] LABS: Vitamin B6 45.7 ng/mL (2.1-21.7)
== END 2020-12-12 09:00 | disposition home or self-care (01) ==
LOC: HO.LAB 08:59
PROVIDERS: Absent Provider Internal Medicine; PCP Internal Medicine; Visit Provider Surgery
DX: Z00.00 Encounter for general adult medical examination without abnormal findings (principal); E66.01 Morbid (severe) obesity due to excess calories; Z68.37 Body mass index [BMI] 37.0-37.9, adult; E78.2 Mixed hyperlipidemia; Z98.84 Bariatric surgery status; Z98.890 Other specified postprocedural states; Z87.19 Personal history of other diseases of the digestive system
CPT/HCPCS: 36415; 80053; 80061; 82306; 82607; 82746; 83540; 84207; 84443; 85027

== ENCOUNTER → 2021-01-03 08:01 | Outpatient (BNVA) | payer BC, SELFPAY | PROVIDERS: PCP Internal Medicine; Visit Provider Dietitian, Registered | DX: E66.01 Morbid (severe) obesity due to excess calories (principal); Z68.36 Body mass index [BMI] 36.0-36.9, adult | CPT/HCPCS: 97803 ==

== ENCOUNTER → 2021-03-06 07:59 | Outpatient (BNVA) | payer BC, SELFPAY | PROVIDERS: PCP Internal Medicine; Visit Provider Physician Assistant Surgical ==

== ENCOUNTER → 2021-05-23 08:17 | Outpatient (BNVA) | payer BC, SELFPAY | PROVIDERS: PCP Internal Medicine; Visit Provider Physician Assistant Surgical ==

== ENCOUNTER → 2021-06-05 08:36 | Outpatient (BNVA) | payer BC, SELFPAY | PROVIDERS: PCP Internal Medicine; Visit Provider Dietitian, Registered | DX: E66.9 Obesity, unspecified (principal); Z68.31 Body mass index [BMI] 31.0-31.9, adult | CPT/HCPCS: 97803 ==

== ENCOUNTER 2021-06-23 10:09 | Outpatient (REF) | payer OTHER, BC, SELFPAY ==
[2021-06-23 11:40] LABS: MANUAL DIFF FLAG NO
[2021-06-23 11:45] LABS: Basophils Percent Auto 0.2 % (0-2); Eosinophils Absolute Auto 0.1 X10*3/uL (0.0-0.4); Hematocrit 40.2 % (42.0-52.0); Hemoglobin 13.3 g/dl (14.0-18.0); Imm Gran Abs Auto 0.01 X10*3/uL (0.00-0.03); Imm Gran Pct Auto 0.2 % (0.0-0.4); Lymphocytes Absolute Auto 1.8 X10*3/uL (1.2-4.9); Lymphocytes Percent Auto 31.5 % (20-40); Mean Corpuscular HGB Conc 33.1 g/dl (31.0-36.0); Mean Corpuscular Hemoglobin 27.4 pg (27.0-33.0); Mean Corpuscular Volume 82.7 fL (80.0-98.0); Mean Platelet Volume 10.6 fL (9.4-12.4); Monocytes Absolute Auto 0.3 X10*3/uL (0.1-1.2); Monocytes Percent Auto 4.5 % (2-11); Neutrophils Absolute Auto 3.4 x10*3/uL (2.0-8.3); Neutrophils Percent Auto 61.6 % (45-73); Platelet Count 222 X10*3/uL (160-400); Red Blood Count 4.86 X10*6/uL (4.60-5.80); Red Cell Distribution Width 13.2 % (11.0-16.0); White Blood Count 5.6 X10*3/uL (4.8-10.8)
[2021-06-23 12:01] LABS: Estimated Average Glucose 100 mg/dL; Hemoglobin A1c % 5.1 %
[2021-06-23 12:12] LABS: Anion Gap 12 (12-20); Blood Urea Nitrogen 13 mg/dL (9-16); Calcium 9.4 mg/dL (8.4-10.2); Carbon Dioxide 30 mmol/L (22-29); Chloride 103 mmol/L (96-108); Cholesterol 166 mg/dL; Estimated Glomerular Filt Rate > 60; Glucose Random 91 mg/dL (60-115); HDL Cholesterol 33 mg/dL; Iron 93 mcg/dL (45-160); LDL Cholesterol Calculated 116 mg/dl; Percent Iron Saturation 35 % (15-50); Potassium 4.6 mmol/L (3.3-5.1); Sodium 140 mmol/L (135-145); Total Iron Binding Capacity 268 mcg/dL (228-428); Triglycerides 89 mg/dL; Unsaturated Iron Binding 175 ug/dL
[2021-06-23 12:17] LABS: Ferritin 201 ng/mL (20-250); TSH reflex Free T4 0.92 uIU/mL (0.32-4.0); Vitamin D 25-OH Total 41.6 ng/mL (>30)
[2021-06-23 12:35] LABS: Folate 18.5 ng/mL (> or = 4.0); Vitamin B12 783 pg/mL (200-900)
[2021-06-26 23:55] LABS: Zinc 99 mcg/dL (60-130)
[2021-06-27 22:13] LABS: Vitamin A 38 mcg/dL (38-98)
[2021-06-29 16:36] LABS: Vitamin B1 13 nmol/L (8-30)
== END 2021-06-23 10:10 | disposition home or self-care (01) ==
LOC: HO.HMGCLDS 10:09
PROVIDERS: Visit Provider Physician Assistant Surgical
DX: E66.9 Obesity, unspecified (principal)
CPT/HCPCS: 36415; 80048; 80061; 82306; 82607; 82728; 82746; 83036; 83540; 84425; 84443; 84590; 84630; 85025

== ENCOUNTER → 2021-08-07 07:57 | Outpatient (BNVA) | payer OTHER, BC, SELFPAY | PROVIDERS: PCP Internal Medicine; Visit Provider Nurse Practitioner Family | DX: S06.0X9A Concussion with loss of consciousness of unspecified duration, initial encounter (principal); H91.92 Unspecified hearing loss, left ear; R06.83 Snoring; G47.19 Other hypersomnia; R42 Dizziness and giddiness | CPT/HCPCS: 99202 ==

== ENCOUNTER → 2021-12-01 08:10 | Outpatient (BNVA) | payer OTHER, BC, SELFPAY | PROVIDERS: PCP Internal Medicine; Visit Provider Nurse Practitioner Family | DX: F07.81 Postconcussional syndrome (principal); F43.20 Adjustment disorder, unspecified; H91.92 Unspecified hearing loss, left ear; H93.19 Tinnitus, unspecified ear | CPT/HCPCS: 99212 ==

== ENCOUNTER → 2022-02-01 10:44 | Outpatient (BNVA) | payer OTHER, BC, SELFPAY | PROVIDERS: PCP Internal Medicine; Visit Provider Nurse Practitioner Family | DX: F07.81 Postconcussional syndrome (principal); F43.20 Adjustment disorder, unspecified | CPT/HCPCS: 99212 ==

== ENCOUNTER → 2022-06-22 08:53 | Outpatient (BNVA) | payer OTHER, SELFPAY | PROVIDERS: PCP Internal Medicine; Visit Provider Nurse Practitioner Family | DX: F07.81 Postconcussional syndrome (principal); R42 Dizziness and giddiness | CPT/HCPCS: 99212 ==

== ENCOUNTER 2022-10-02 07:25 | Outpatient (AMB) | payer BC, SELFPAY ==
[2022-10-02 07:33] VITALS: BP 124/78; PULSE 64; O2SAT 96; BMI 34.4
--- NOTE | 2022-10-02 07:33 | MHC.OFFVIS ---
Intake Vital Signs 10/02/22 07:33 Height 6 ft 5 in Weight 290 lb 4 oz BMI 34.4 BP 124/78 Blood Pressure Location Rt brachial Position Sitting Pulse 64 Pulse Source Pulse Oximeter Pulse Oximetry (%) 96 Oxygen Delivery Method Room Air Intake Visit Reasons: F/u appt - Confirmed Intake Note: Pt presents as a f/u. Pt states he is doing better and no concerns. 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 Pt denies any significant interval medical changes. Pt reports that he is doing overall better. He has slowlyweaned himself off of the Amitriptyline, and trying to wean off the B2 and Mag. The spinning dizziness episodes have decreased- has a warning andthen they last about 10 seconds. In the evening, may be whoozy. He started exersing at [employer]- and this has not triggered dizziness. Headaches are slowly decreasing. Some days may wake up with a more bothersome headache. May use Tylenol or Rizatriptan as needed. 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 Sometimes may need to take a break from continued computer use, but this does not cause any issues. He notes today that he has a h/o CARLTON- he stopped using his PAP machine a while ago as it was a [employer] machine and was part of the recall. When he was diagnosed with sleep apnea it was prior to his weight loss surgery. Prior to the surgery- he had severe snoring, excessive daytime sleepiness. Now he feels that he is snoring less, continues to have some excessive daytime sleepiness- ESS 10- he is curious about the status of his sleep apnea- whether he should resume using CPAP or not. [facility] Medical History (Updated 10/02/22 @ 12:54 by TOMEKA Hair) Adjustment disorder, unspecified Annual physical exam Asthma Back pain of lumbar region with sciatica Body mass index (BMI) of 40.1 to 44.9 in adult Body mass index (BMI) of 45.0-49.9 in adult Concussion Fall Hiatal hernia Low testosterone in male Mixed hyperlipidemia Morbid obesity (~06/23/21) Morbid obesity due to excess calories Obstructive sleep apnea on CPAP Preoperative examination Rash Seasonal allergies Shortness of breath Vitamin D deficiency Surgical History (Updated 10/02/22 @ 07:40 by Savannah Richards CMA) History of repair of hiatal hernia Hx of vasectomy No pertinent past surgical history S/P laparoscopic sleeve gastrectomy Family History Father Heart disease Psoriasis Diabetes CVD (cardiovascular disease) Mother Diabetes Son No problems noted. Brother No problems noted. Brother No problems noted. Brother No problems noted. Brother No problems noted. Sister No problems noted. Sister No problems noted. Sister No problems noted. Sister No problems noted. Social History (Updated 10/02/22 @ 07:41 by Savannah Richards CMA) Household Members: Family Housing: House Housing Other:: works as [employer] Are you a primary child care center assistant director to a significant other at home: No Do you presently have visiting nurse or other home services: No Alcohol intake: never Patient Tobacco Use Status: Never used Tobacco e-Cigarette/Vaping Use: Never Used Current occupational status: employed Review of Systems Const All systems reviewed & are unremarkable except as noted in HPI and below Physical Exam Vital Signs: Last Vital Signs Pulse 64 10/02/22 07:33 BP 124/78 10/02/22 07:33 Pulse Ox 96 10/02/22 07:33 Oxygen Delivery Method Room Air 10/02/22 07:33 BMI result Body Mass Index 34.4 Const General: cooperative and no acute distress Orientation/consciousness: patient oriented x3 HEENT Head: Yes normocephalic Resp Effort & Inspection: normal respiratory effort and able to speak in complete sentences Neuro General: patient oriented x3, gait normal and CN's II-XI intact bilaterally Cognition (Neuro): normal cognition Motor exam (neuro): 5/5 motor strength present throughout Psych Appearance: grossly normal Mental Status: mental status grossly normal Speech and movement: Normal speech and movement present Affect: normal affect Attitude: cooperative Thought process: Normal thought process present Thought content: Normal thought content present Insight: Good insight present (Psych) Judgement: Good judgement present (Psych) Assessment & Plan Assessment & Plan (1) Postconcussion syndrome: Comment: 05/12/21 w/ migraine-like TEJADA, vertigo, tinnitus, cognitive difficulties, mood irritability, sleep difficulties. Code(s): F07.81 - Postconcussional syndrome (2) Excessive daytime sleepiness: Comment: ESS 15 Code(s): G47.19 - Other hypersomnia (3) Snoring: Code(s): R06.83 - Snoring (4) Obstructive sleep apnea: Comment: not currently on PAP tx- machine was aprt of [employer] recal. Code(s): G47.33 - Obstructive sleep apnea (adult) (pediatric) Plan Pt continues to make gains, but does continue to have ongoing mild post-concussive symptoms. For prevention of postconcussive migraine headache: May hold Riboflavin 200mg bid. May hold Magnesium Oxide 400mg qhs. Stopped?Amitriptyline 100mg qhs. Hold Topiramate 50mg bid- headaches improved. Continue exercise. For acute headache tx: Rizatriptan prn at onset of headache. May use Tylenol 1000mg or Ibuprofen 800mg prn Previous acute migraine trials: Sumatriptan: caused irritability. Future considerations- ODT/nasal/injectable tx options as pt has h/o gastric sleeve surgery.For general postconcussive syndrome. For dizziness: Meclizine up to 25mg tid prn At onset of dizziness, take rest break. He may drive- may need to take breaks. Future considerations- following up on request by ENT for [facility] consult For mood: Mood currently improved Monitor mood For sleep: Pt advised to undergo HST to assess status of his h/o severe sleep apnea, as pt has had > 10% weight loss since previous in-lab PSG. HST results will help us to determine if pt continues to need to use PAP tx or not. 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 f/u in 6 months or sooner prn. Medications: Changed From ibuprofen 800 mg PO TID 90 tabs 0RF To ibuprofen 800 mg PO TID PRN Coding Level of Care Code Est Pt Level 4 (26528) Diagnoses Postconcussion syndrome F07.81 Excessive daytime sleepiness G47.19 Snoring R06.83 Obstructive sleep apnea G47.33
== END 2022-10-02 08:22 | disposition home or self-care (01) ==
LOC: HO.HSMS 07:25
PROVIDERS: PCP Internal Medicine; Visit Provider Nurse Practitioner Family
DX: F07.81 Postconcussional syndrome (principal); G47.19 Other hypersomnia; R06.83 Snoring; G47.33 Obstructive sleep apnea (adult) (pediatric)
CPT/HCPCS: 99214

== ENCOUNTER → 2022-10-02 07:25 | Outpatient (BNVA) | payer BC, SELFPAY | PROVIDERS: PCP Internal Medicine; Visit Provider Nurse Practitioner Family ==

== ENCOUNTER 2023-04-04 07:52 | Outpatient (AMB) | payer BC, SELFPAY ==
[2023-04-04 08:05] VITALS: BP 134/78; PULSE 51; O2SAT 99; BMI 34.0
--- NOTE | 2023-04-04 08:05 | A.OFFVIS_ITS ---
Intake Vital Signs 04/04/23 08:05 Height 6 ft 5 in Weight 287 lb BMI 34.0 BP 134/78 Blood Pressure Location Rt brachial Position Sitting Pulse 51 Pulse Source Pulse Oximeter Pulse Oximetry (%) 99 Oxygen Delivery Method Room Air Intake Visit Reasons: 6m follow up-Confirmed Intake Note: Patient presents for 6 month follow up. no issues or concerns Allergies dog dander Allergy (Mild, Verified 04/04/23 08:07) Runny Nose, congestion HPI HPI Comments History of Present Illness Details 38-yr-old male presents for f/u visit. Pt denies any significant interval medical changes. Pt has stopped most of his meds, except for the B2, as work comp stopped covering his medications. He has had just one episode of intense vertigo in the past 6 months. His headache attacks are less often, now 1-2 per month, wants to go into a dark room. Using Tylenol and Ibuprofen, Broderick does work better- has a few left. He continues to have left ear hearing loss. His vision is better. He is now sleeping better- usually 6-8 hrs per night. He is still going to gym- 2-3 mornings per week- at [employer]- noticing more gains. 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 [facility] Medical History (Updated 10/02/22 @ 12:54 by TOMEKA Hair) Rash Back pain of lumbar region with sciatica Concussion Fall Hiatal hernia Morbid obesity (~06/23/21) Shortness of breath Preoperative examination Adjustment disorder, unspecified Seasonal allergies Annual physical exam Mixed hyperlipidemia Asthma Body mass index (BMI) of 40.1 to 44.9 in adult Vitamin D deficiency Body mass index (BMI) of 45.0-49.9 in adult Obstructive sleep apnea on CPAP Low testosterone in male Morbid obesity due to excess calories Surgical History Hx of vasectomy S/P laparoscopic sleeve gastrectomy History of repair of hiatal hernia No pertinent past surgical history Family History Father Heart disease Psoriasis Diabetes CVD (cardiovascular disease) Mother Diabetes Son No problems noted. Brother No problems noted. Brother No problems noted. Brother No problems noted. Brother No problems noted. Sister No problems noted. Sister No problems noted. Sister No problems noted. Sister No problems noted. Social History (Updated 10/02/22 @ 07:41 by Savannah Richards [facility]) Household Members: Family Housing: House Housing Other:: works as [employer] Are you a primary care navigator to a significant other at home: No Do you presently have visiting nurse or other home services: No Alcohol intake: never Comment: aware of trip hazard Patient Tobacco Use Status: Never used Tobacco e-Cigarette/Vaping Use: Never Used Current occupational status: employed Physical Exam Vital Signs: Last Vital Signs Pulse 51 04/04/23 08:05 BP 134/78 04/04/23 08:05 Pulse Ox 99 04/04/23 08:05 Oxygen Delivery Method Room Air 04/04/23 08:05 BMI result Body Mass Index 34.0 Const General: cooperative and no acute distress Orientation/consciousness: patient oriented x3 Resp Effort & Inspection: normal respiratory effort and able to speak in complete sentences Neuro Other: left hearing loss General: patient oriented x3 Cognition (Neuro): normal cognition Psych Appearance: grossly normal Mental Status: mental status grossly normal Speech and movement: Normal speech and movement present Affect: normal affect Attitude: cooperative Assessment & Plan Assessment & Plan (1) Postconcussion syndrome: Comment: 05/12/21 w/ migraine-like TEJADA, vertigo, tinnitus, cognitive difficulties, mood irritability, sleep difficulties. Code(s): F07.81 - Postconcussional syndrome (2) Obstructive sleep apnea: Comment: not currently on PAP tx- machine was aprt of [employer] recal. Code(s): G47.33 - Obstructive sleep apnea (adult) (pediatric) (3) Left ear hearing loss: Code(s): H91.92 - Unspecified hearing loss, left ear Plan Pt continues to make gains, but does continue to have ongoing mild post-c oncussive symptoms. ? For prevention of postconcussive migraine headache: Continue Riboflavin 200mg bid. Alternately, may trial OTC Migralief (B2, Mag, feverfew supplement). Continue exercise. For acute headache tx: Rizatriptan prn at onset of headache. May use Tylenol 1000mg or Ibuprofen 800mg prn Previous acute migraine trials: Sumatriptan: caused irritability. Future considerations- ODT/nasal/injectable tx options as pt has h/o gastric sleeve surgery.For general postconcussive syndrome. For dizziness: Improved At onset of dizziness, take rest break. Hold Meclizine up to 25mg tid prn order. Future considerations- following up on request by ENT for [facility] consult For mood: Mood currently improved Monitor mood For sleep: No current s/s of EDS, if pt has increased s/s CARLTON, will reconsder doing a f/u HST. Previous resp home care supplier- [facility] ? 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 ? f/u in 6 months or sooner prn. Coding Level of Care Code Est Pt Level 4 (05922) Diagnoses Postconcussion syndrome F07.81 Obstructive sleep apnea G47.33 Left ear hearing loss H91.92
== END 2023-04-04 09:01 | disposition home or self-care (01) ==
PROVIDERS: PCP Internal Medicine; Visit Provider Nurse Practitioner Family
DX: G44.309 Post-traumatic headache, unspecified, not intractable (principal); F07.81 Postconcussional syndrome; G47.33 Obstructive sleep apnea (adult) (pediatric); H91.92 Unspecified hearing loss, left ear
CPT/HCPCS: 99214

== ENCOUNTER → 2023-04-04 07:52 | Outpatient (BNVA) | payer BC, SELFPAY | PROVIDERS: PCP Internal Medicine; Visit Provider Nurse Practitioner Family ==

== ENCOUNTER 2023-06-20 08:05 | Outpatient (AMB) | payer BC, SELFPAY ==
--- NOTE | 2023-06-20 08:11 | A.OFFPC_ITS ---
Vital Signs 06/20/23 08:20 Height 6 ft 5 in Weight 279 lb BMI 33.1 BP 102/60 Blood Pressure Location Lt brachial Position Sitting Pulse 54 Pulse Source Pulse Oximeter Pulse Oximetry (%) 98 Oxygen Delivery Method Room Air Intake Visit Reasons: PE Intake Note: Pt is here today for PE. Allergies dog dander Allergy (Mild, Verified 06/20/23 08:21) Runny Nose, congestion Tobacco use date assessed: 06/20/23 Dental Screening Dental Screen Date: 06/20/23 Did you have a dental visit in the last 12 months?: Yes Did you have a dental problem in the last 6 months where you did not have access to dental care?: No Was dental information given to patient?: Patient has dentist HPI PE HPI Details Pt presents for PE. Patient reports seasonal allergies spring and fall and used to get allergy shots but only for 6 months. 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 Patient has not been using a CPAP because recall of his CPAP machine. He can not getting new one unless he does another sleep study. [facility] Medical History (Updated 06/20/23 @ 08:49 by Gela Preston MD) Rash Back pain of lumbar region with sciatica Concussion Fall Hiatal hernia Morbid obesity (~06/23/21) Shortness of breath Preoperative examination Adjustment disorder, unspecified Seasonal allergies Annual physical exam Mixed hyperlipidemia Asthma Body mass index (BMI) of 40.1 to 44.9 in adult Vitamin D deficiency Body mass index (BMI) of 45.0-49.9 in adult Obstructive sleep apnea on CPAP Low testosterone in male Surgical History Hx of vasectomy S/P laparoscopic sleeve gastrectomy History of repair of hiatal hernia No pertinent past surgical history Family History Father Heart disease Psoriasis Diabetes CVD (cardiovascular disease) Mother Diabetes Son No problems noted. Brother No problems noted. Brother No problems noted. Brother No problems noted. Brother No problems noted. Sister No problems noted. Sister No problems noted. Sister No problems noted. Sister No problems noted. Social History Household Members: Family Housing: House Housing Other:: works as [employer]. Are you a primary healthcare applications analyst to a significant other at home: No Do you presently have visiting nurse or other home services: No Alcohol intake: never Comment: aware of trip hazard Patient Tobacco Use Status: Never used Tobacco e-Cigarette/Vaping Use: Never Used Current occupational status: employed Cognitive needs: No Hearing needs: No Vision needs: No Questionnaire PHQ-9 Over the last 2 weeks, how often have you been bothered by any of the following problems? 1. Little interest or pleasure in doing things: several days 2. Feeling down, depressed, or hopeless: several days 3. Trouble falling or staying asleep, or sleeping too much: not at all 4. Feeling tired or having little energy: several days 5. Poor appetite or overeating: not at all 6. Feeling bad about yourself - or that you are a failure or have let yourself or your family down: not at all 7. Trouble concentrating on things, such as reading the newspaper or watching television: not at all 8. Moving or speaking so slowly that other people could have noticed. Or the o pposite - being so fidgety or restless that you have been moving around a lot more than usual: not at all 9. Thoughts that you would be better off or of hurting yourself in some way: not at all Total score: 3 Depression Screening Interpretation: Negative Depression Screening Done: Yes Source: Developed by Drs. Reyes Handley, Komal Negrete, Derek Ferrer and colleagues, with an educational andrew from [employer]. Thrive Questionnaire Date Thrive assessed: 06/20/23 I am a: Patient What is your living situation today?: I have a steady place to live Within the past 12 months, did the food you bought not last and you didn't have the money to get more?: Never true Within the past 12 months, did you worry whether your food would run out before you got money to buy more?: Sometimes True Do you have trouble paying for medicines?: No Do you have trouble getting transportation to medical appointments?: No Do you have trouble paying your heating and electricity bill?: No Do you have trouble taking care of your child, family member or friend?: No Do you have trouble with day-to-day activities such as bathing, preparing meals, shopping, managing finances, etc.?: I choose not to answer this question Are you currently unemployed and looking for a job?: No Are you interested in more education?: No Please select the resources that you would like help with: None THRIVE Score: 1 AUDIT C Alcohol Use Questionnaire (AUDIT-C) 1. How often do you have a drink containing alcohol?: Never 2. How many drinks containing alcohol do you have on a typical day when you are drinking?: 1 or 2 3. How often do you have six or more drinks on one occasion?: Never Total Score: 0 HAYLEE-7 AMB Questionnaire HAYLEE-7 Date HAYLEE - 7 assessed: 06/20/23 Feeling nervous, anxious, or on edge: 2 = More than half the days Not being able to stop or control worryin = Several days Worrying too much about different things: 1 = Several days Trouble relaxin = Several days Being so restless that it is hard to sit still: 0 = Not at all Becoming easily annoyed or irritable: 1 = Several days Feeling afraid as if something awful might happen: 1 = Several days Total HAYLEE-7 score (0-4 normal; 5-9 mild; 10-14 moderate; 15-21 severe): 7 Source: Developed by Drs. Reyes Handley, Komal Negrete, Derek Ferrer and colleagues, with an educational andrew from [employer]. Review of Systems Const All systems reviewed & are unremarkable except as noted in HPI and below Reports no additional complaints Eyes Reports no additional complaints ENT Reports no additional complaints Card Reports no additional complaints Resp Reports no additional complaints GI Reports no additional complaints Reports no additional complaints Physical exam (Primary Care) Vital Signs: Last Vital Signs Pulse 54 06/20/23 08:20 BP 102/60 06/20/23 08:20 Pulse Ox 98 06/20/23 08:20 Oxygen Delivery Method Room Air 06/20/23 08:20 BMI result Body Mass Index 33.1 Tobacco/Smoking Status: Tobacco use Status Tobacco use date assessed 06/20/23 06/20/23 08:25 Patient Tobacco Use Status Never used Tobacco 06/20/23 08:25 e-Cigarette/Vaping Use Never Used 06/20/23 08:13 PHQ-9: PHQ-9 Score PHQ-9: Total score 3 06/20/23 08:38 Depression Screening Interpretation: Negative Thrive Assessment: Date of Thrive Assessment Date Thrive assessed 06/20/23 06/20/23 08:13 Const General: no acute distress HENMT Head: Yes normal to inspection Ears: hearing grossly normal bilaterally General nose exam: Normal external nose present Face and sinus: Yes normal facial exam Mouth: Normal oral and palatal mucosa present Throat: Yes posterior oropharynx normal Eyes General: appearance normal, both eyes and all related structures Neck Neck: Yes no lymphadenopathy and Yes supple Resp Effort & Inspection: normal respiratory effort Auscultation: clear to auscultation bilaterally Cardio Rhythm: regular rhythm Heart sounds: S1 normal heart sound present and S2 normal heart sound present GI Inspection: Yes normal to inspection Palpation (GI): Soft to palpation Percussion: Yes normal to percussion Auscultation: normal bowel sounds Assessment and Plan Assessment & Plan (1) Seasonal allergies: Code(s): J30.2 - Other seasonal allergic rhinitis Plan: Refer to allergy (2) S/P laparoscopic sleeve gastrectomy: Comment: 10/2020 Code(s): Z98.84 - Bariatric surgery status Plan: Follow-up with bariatric surgery team at [facility] (3) Annual physical exam: Code(s): Z00.00 - Encounter for general adult medical examination without abnormal findings Plan: Well-balanced diet regular physical activity discussed with the patient he will return for fasting blood work (4) Obstructive sleep apnea: Comment: not currently on PAP tx- machine was aprt of [facility] recall, ordered sleep study 06/15, f/u with Sleep Medicine Code(s): G47.33 - Obstructive sleep apnea (adult) (pediatric) Plan: Schedule a sleep study with titration and follow-up with Sleep Medicine Orders: Orders RT PSG in-lab sleep titration Today Comprehensive [place]. Panel Fast Today G47.33 - Obstructive sleep apnea (adult) (pediatric), Z00.00 - Encounter for general adult medical examination without abnormal findings, Z98.84 - Bariatric surgery status Lipid Panel Today G47.33 - Obstructive sleep apnea (adult) (pediatric), Z00.00 - Encounter for general adult medical examination without abnormal findings, Z98.84 - Bariatric surgery status UA w Microscopic Today G47.33 - Obstructive sleep apnea (adult) (pediatric), Z00.00 - Encounter for general adult medical examination without abnormal findings, Z98.84 - Bariatric surgery status Vitamin B12 and Folate Today G47.33 - Obstructive sleep apnea (adult) (pediatric), Z00.00 - Encounter for general adult medical examination without abnormal findings, Z98.84 - Bariatric surgery status Complete Blood Count Auto Diff Today G47.33 - Obstructive sleep apnea (adult) (pediatric), Z00.00 - Encounter for general adult medical examination without abnormal findings, Z98.84 - Bariatric surgery status IRON PROFILE Today G47.33 - Obstructive sleep apnea (adult) (pediatric), Z00.00 - Encounter for general adult medical examination without abnormal findings, Z 98.84 - Bariatric surgery status Vitamin B2 (Riboflavin) Today Referrals Bariatric Surgery Referral G47.33 - Obstructive sleep apnea (adult) (pediatric), Z00.00 - Encounter for general adult medical examination without abnormal findings, Z98.84 - Bariatric surgery status Allergy & Immunology Referral J30.2 - Other seasonal allergic rhinitis Coding Level of Care Code Est Pt Prev Care 18-39y(23606) Diagnoses Seasonal allergies J30.2 S/P laparoscopic sleeve gastrectomy Z98.84 Annual physical exam Z00.00 Obstructive sleep apnea G47.33
[2023-06-20 08:20] VITALS: BP 102/60; PULSE 54; O2SAT 98; BMI 33.1
== END 2023-06-20 09:15 | disposition home or self-care (01) ==
PROVIDERS: PCP Internal Medicine; Visit Provider Internal Medicine
DX: J30.2 Other seasonal allergic rhinitis (principal); Z98.84 Bariatric surgery status; Z00.00 Encounter for general adult medical examination without abnormal findings; G47.33 Obstructive sleep apnea (adult) (pediatric)
CPT/HCPCS: 99395

== ENCOUNTER 2023-06-25 08:14 | Outpatient (REF) | payer BC, SELFPAY ==
[2023-06-25 08:39] LABS: MANUAL DIFF FLAG NO
[2023-06-25 09:14] LABS: Basophils Percent Auto 0.3 % (0-2); Eosinophils Absolute Auto 0.2 X10*3/uL (0.0-0.4); Eosinophils Percent Auto 2.5 % (0-4); Hematocrit 41.2 % (42.0-52.0); Hemoglobin 13.5 g/dl (14.0-18.0); Imm Gran Abs Auto 0.02 X10*3/uL (0.00-0.03); Imm Gran Pct Auto 0.3 % (0.0-0.4); Lymphocytes Absolute Auto 1.6 X10*3/uL (1.2-4.9); Lymphocytes Percent Auto 23.4 % (20-40); Mean Corpuscular HGB Conc 32.8 g/dl (31.0-36.0); Mean Corpuscular Hemoglobin 27.6 pg (27.0-33.0); Mean Corpuscular Volume 84.3 fL (80.0-98.0); Mean Platelet Volume 10.8 fL (9.4-12.4); Monocytes Absolute Auto 0.3 X10*3/uL (0.1-1.2); Monocytes Percent Auto 4.8 % (2-11); Neutrophils Absolute Auto 4.8 x10*3/uL (2.0-8.3); Neutrophils Percent Auto 68.7 % (45-73); Platelet Count 207 X10*3/uL (160-400); Red Blood Count 4.89 X10*6/uL (4.60-5.80); Red Cell Distribution Width 12.9 % (11.0-16.0); White Blood Count 6.9 X10*3/uL (4.8-10.8)
[2023-06-25 09:42] LABS: Alanine Aminotransferase 18 U/L (0-40); Albumin Level 4.1 g/dL (3.5-5.0); Alkaline Phosphatase 49 U/L (39-117); Anion Gap 11 (12-20); Aspartate Amino Transferase 19 U/L (5-37); Bilirubin Total 0.7 mg/dL (0.0-1.0); Blood Urea Nitrogen 16 mg/dL (9-16); Calcium 9.2 mg/dL (8.4-10.2); Carbon Dioxide 28 mmol/L (22-29); Chloride 107 mmol/L (96-108); Cholesterol 176 mg/dL (<200); Estimated Glomerular Filt Rate > 60; Glucose Fasting 85 mg/dL (60-99); HDL Cholesterol 42 mg/dL (>40); Iron 118 mcg/dL (45-160); LDL Cholesterol Calculated 122 mg/dL (<100); Percent Iron Saturation 47 % (15-50); Potassium 3.7 mmol/L (3.3-5.1); Sodium 142 mmol/L (135-145); Total Iron Binding Capacity 251 mcg/dL (228-428); Total Protein 7.3 g/dL (6.5-8.0); Triglycerides 60 mg/dL (<150); Unsaturated Iron Binding 133 ug/dL
[2023-06-25 10:17] LABS: Appearance Urine Clear; Color Urine Dark Yellow; Glucose Urine UA Negative (Negative); Leukocyte Esterase Urine Negative (Negative); Nitrite Urine Negative (Negative); PH 5.5 (5.0-9.0); Specific Gravity - Urine >= 1.030 (1.005-1.025); Urine Blood Negative (Negative); Urine Ketones Negative (Negative); Urine Protein Negative (Neg-Trace)
[2023-06-25 10:47] LABS: Bacteria Urine None Seen (None Seen); Hyaline Casts Urine 0-2 /LPF (0-2); RBC Urine 0-2 /HPF (0-2); Squamous Epithelial Cell Urine 0-2 /HPF (0-2); WBC Urine 0-5 /HPF (0-5)
[2023-06-25 12:07] LABS: Folate 12.5 ng/mL (> or = 4.0); Vitamin B12 654 pg/mL (200-900)
[2023-07-01 16:59] LABS: Vitamin B2 (Riboflavin) 17.3 nmol/L (6.2-39.0)
== END 2023-06-25 08:15 | disposition home or self-care (01) ==
LOC: HO.LAB 08:14
PROVIDERS: PCP Internal Medicine; Visit Provider Internal Medicine
DX: Z00.00 Encounter for general adult medical examination without abnormal findings (principal); Z13.6 Encounter for screening for cardiovascular disorders; G47.33 Obstructive sleep apnea (adult) (pediatric); Z98.84 Bariatric surgery status
CPT/HCPCS: 36415; 80053; 80061; 81001; 82607; 82746; 83540; 84252; 85025

== ENCOUNTER → 2023-08-30 19:00 | Outpatient (BNV) | payer BC, SELFPAY | PROVIDERS: Visit Provider Internal Medicine | DX: G47.33 Obstructive sleep apnea (adult) (pediatric) (principal) | CPT/HCPCS: 95810 ==

== ENCOUNTER → 2023-08-30 19:20 | Outpatient (REF) | payer BC, SELFPAY | LOC: HO.SL 19:20 | PROVIDERS: Visit Provider Internal Medicine | DX: G47.33 Obstructive sleep apnea (adult) (pediatric) (principal) | CPT/HCPCS: 95810 ==

== ENCOUNTER 2024-07-08 08:16 | Outpatient (AMB) | payer BC, SELFPAY ==
--- NOTE | 2024-07-08 08:20 | MHC.PC.OV ---
Vital Signs 07/08/24 08:23 Height 6 ft 5 in Weight 263 lb BMI 31.2 BP 110/70 Blood Pressure Location Lt brachial Position Sitting Respiration 18 Pulse 56 Pulse Source Pulse Oximeter Temp 98.4 F Temp Source Oral Pulse Oximetry (%) 98 Oxygen Delivery Method Room Air Intake Visit Reasons: Annual PE Intake Note: Pt is here today for PE. Allergies dog dander Allergy (Mild, Verified 07/08/24 08:23) Runny Nose, congestion Tobacco use date assessed: 07/08/24 Dental Screening Dental Screen Date: 07/08/24 Did you have a dental visit in the last 12 months?: Yes Did you have a dental problem in the last 6 months where you did not have access to dental care?: No Was dental information given to patient?: Patient has dentist HPI Annual PE HPI Details Pt presents for PE. PENDING SALE TO [facility] Medical History (Updated 07/08/24 @ 09:00 by Gela Preston MD) Rash Back pain of lumbar region with sciatica Concussion Hiatal hernia Morbid obesity (~06/23/21) Shortness of breath Preoperative examination Adjustment disorder, unspecified Seasonal allergies Annual physical exam Mixed hyperlipidemia Asthma Vitamin D deficiency Body mass index (BMI) of 45.0-49.9 in adult Low testosterone in male Surgical History Hx of vasectomy S/P laparoscopic sleeve gastrectomy History of repair of hiatal hernia No pertinent past surgical history Family History Father Heart disease Psoriasis Diabetes CVD (cardiovascular disease) Mother Diabetes Son No problems noted. Brother No problems noted. Brother No problems noted. Brother No problems noted. Brother No problems noted. Sister No problems noted. Sister No problems noted. Sister No problems noted. Sister No problems noted. Social History Household Members: Family Housing: House Housing Other:: works as [employer] Are you a primary home health caregiver to a significant other at home: No Do you presently have visiting nurse or other home services: No Alcohol intake: never Comment: aware of trip hazard Patient Tobacco Use Status: Never used Tobacco e-Cigarette/Vaping Use: Never Used Current occupational status: employed Cognitive needs: No Hearing needs: No Vision needs: No Questionnaire PHQ-9 Over the last 2 weeks, how often have you been bothered by any of the following problems? 1. Little interest or pleasure in doing things: not at all 2. Feeling down, depressed, or hopeless: several days 3. Trouble falling or staying asleep, or sleeping too much: several days 4. Feeling tired or having little energy: not at all 5. Poor appetite or overeating: not at all 6. Feeling bad about yourself - or that you are a failure or have let yourself or your family down: not at all 7. Trouble concentrating on things, such as reading the newspaper or watching television: not at all 8. Moving or speaking so slowly that other people could have noticed. Or the opposite - being so fidgety or restless that you have been moving around a lot more than usual: not at all 9. Thoughts that you would be better off or of hurting yourself in some way: not at all Total score: 2 Depression Screening Interpretation: Negative Depression Screening Done: Yes 52570 - PHQ-9 Billing: Yes Source: Developed by Drs. Reyes Handley, Komal Negrete, Derek Ferrer and colleagues, with an educational andrew from [employer]. Thrive Questionnaire Date Thrive assessed: 07/08/24 I am a: Patient What is your living situation today?: I have a steady place to live Within the past 12 months, did the food you bought not last and you didn't have the money to get more?: Never true Within the past 12 months, did you worry whether your food would run out before you got money to buy more?: Sometimes True Do you have trouble paying for medicines?: No Do you have trouble getting transportation to medical appointments?: No Do you have trouble paying your heating and electricity bill?: No Do you have trouble taking care of your child, family member or friend?: No Do you have trouble with day-to-day activities such as bathing, preparing meals, shopping, managing finances, etc.?: No Are you currently unemployed and looking for a job?: No Are you interested in more education?: Yes Please select the resources that you would like help with: None Currently or been in a relationship where the following occur: No concerns reported THRIVE Score: 1 AUDIT C Alcohol Use Questionnaire (AUDIT-C) 1. How often do you have a drink containing alcohol?: Monthly or less 2. How many drinks containing alcohol do you have on a typical day when you are drinking?: 1 or 2 3. How often do you have six or more drinks on one occasion?: Never Total Score: 1 HAYLEE-7 AMB Questionnaire HAYLEE-7 Date HAYLEE - 7 assessed: 07/08/24 Feeling nervous, anxious, or on edge: 1 = Several days Not being able to stop or control worryin = Several days Worrying too much about different things: 1 = Several days Trouble relaxin = Several days Being so restless that it is hard to sit still: 0 = Not at all Becoming easily annoyed or irritable: 1 = Several days Feeling afraid as if something awful might happen: 0 = Not at all Total HAYLEE-7 score (0-4 normal; 5-9 mild; 10-14 moderate; 15-21 severe): 5 Source: Developed by Drs. Reyes Handley, Komal Negrete, Derek Ferrer and colleagues, with an educational andrew from [employer]. HAYLEE-7 Assessment Billing HAYLEE-7 Assessment Tool: HAYLEE-7 Assessment 17807 Review of Systems Const All systems reviewed & are unremarkable except as noted in HPI and below Reports no additional complaints Eyes Reports no additional complaints ENT Reports no additional complaints Card Reports no additional complaints Resp Reports no additional complaints GI Reports no additional complaints Reports no additional complaints Physical exam (Primary Care) Vital Signs: Last Vital Signs Temp 98.4 F 07/08/24 08:23 Pulse 56 07/08/24 08:23 Resp 18 07/08/24 08:23 BP 110/70 07/08/24 08:23 Pulse Ox 98 07/08/24 08:23 Oxygen Delivery Method Room Air 07/08/24 08:23 BMI result Body Mass Index 31.2 Tobacco/Smoking Status: Tobacco use Status Tobacco use date assessed 07/08/24 07/08/24 08:27 Patient Tobacco Use Status Never used Tobacco 07/08/24 08:21 e-Cigarette/Vaping Use Never Used 07/08/24 08:21 PHQ-9: PHQ-9 Score PHQ-9: Total score 2 07/08/24 08:27 Depression Screening Interpretation: Negative Thrive Assessment: Date of Thrive Assessment Date Thrive assessed 07/08/24 07/08/24 08:27 Currently or been in a relationship where the following occur: No concerns reported Const General: no acute distress HENMT Head: Yes normal to inspection Ears: hearing grossly normal bilaterally General nose exam: Normal external nose present Face and sinus: Yes normal facial exam Throat: Yes posterior oropharynx normal Eyes General: appearance normal, both eyes and all related structures Neck Neck: Yes no lymphadenopathy and Yes supple Resp Effort & Inspection: normal respiratory effort Auscultation: clear to auscultation bilaterally Cardio Rhythm: regular rhythm Heart sounds: S1 normal heart sound present and S2 normal heart sound present GI Inspection: Yes normal to inspection Palpation (GI): Soft to palpation Percussion: Yes normal to percussion Auscultation: normal bowel sounds Coding Level of Care Code Est Pt Prev Care 18-39y(42752) Diagnoses Mixed hyperlipidemia E78.2 Annual physical exam Z00.00 Morbid obesity E66.01 Additional Codes HAYLEE-7 Assessment Billing - HAYLEE-7 Assessment Tool: HAYLEE-7 Assessment 00261 ([id number]) PHQ-9 - 84045 - PHQ-9 Billing: Yes ([id number]) Assessment & Plan Assessment & Plan (1) Mixed hyperlipidemia: Code(s): E78.2 - Mixed hyperlipidemia Category: Medical Plan: Continue low-cholesterol diet. Patient had blood work done by bariatric surgeon and will send the copy of the results to patient's portal (2) Annual physical exam: Code(s): Z00.00 - Encounter for general adult medical examination without abnormal findings Category: Medical Plan: Well-balanced diet regular physical activity discussed with the patient. (3) Morbid obesity: Onset Date: ~06/23/21 Comment: s/p laparoscopic sleeve gastrectomy 11/12, established with bariatric surgeon started on Zepbound lost 20 lb in 2 months Code(s): E66.01 - Morbid (severe) obesity due to excess calories Category: Medical Plan: Patient follows up with bariatric surgeon she lost 20 lb in the last 2 months on Zepbound. Orders: Orders Comprehensive [place]. Panel Fast Today E66.01 - Morbid (severe) obesity due to excess calories, E78.2 - Mixed hyperlipidemia, Z00.00 - Encounter for general adult medical examination without abnormal findings Vitamin D 25-OH Total Today E66.01 - Morbid (severe) obesity due to excess calories, E78.2 - Mixed hyperlipidemia, Z00.00 - Encounter for general adult medical examination without abnormal findings Complete Blood Count Auto Diff Today E66.01 - Morbid (severe) obesity due to excess calories, E78.2 - Mixed hyperlipidemia, Z00.00 - Encounter for general adult medical examination without abnormal findings Lipid Panel Today E66.01 - Morbid (severe) obesity due to excess calories, E78.2 - Mixed hyperlipidemia, Z00.00 - Encounter for general adult medical examination without abnormal findings Vitamin B12 and Folate Today E66.01 - Morbid (severe) obesity due to excess calories, E78.2 - Mixed hyperlipidemia, Z00.00 - Encounter for general adult medical examination without abnormal findings Medications: New triamcinolone acetonide 0.025% 1 appl topical DAILY 60 mL 0RF
[2024-07-08 08:23] VITALS: BP 110/70; PULSE 56; RESP 18; TEMP 36.9; O2SAT 98; BMI 31.2
== END 2024-07-08 09:04 | disposition home or self-care (01) ==
LOC: HO.HMCC 08:17
PROVIDERS: Visit Provider Internal Medicine
DX: Z00.00 Encounter for general adult medical examination without abnormal findings (principal); E78.2 Mixed hyperlipidemia; E66.01 Morbid (severe) obesity due to excess calories; Z68.31 Body mass index [BMI] 31.0-31.9, adult

== ENCOUNTER → 2024-07-08 08:16 | Outpatient (BNVA) | payer BC, SELFPAY | PROVIDERS: Visit Provider Internal Medicine | DX: Z00.00 Encounter for general adult medical examination without abnormal findings (principal); E78.2 Mixed hyperlipidemia; E66.01 Morbid (severe) obesity due to excess calories; Z68.31 Body mass index [BMI] 31.0-31.9, adult; Z98.84 Bariatric surgery status | CPT/HCPCS: 96127 ==